=== PATIENT | female | born 1970 | race Caucasian/White ===

== ENCOUNTER → 2016-09-15 | Outpatient (CLI) | payer OTHER ==
[~2016-09-15] MED LIST: ALPRAZOLAM1 MG PO; ANTIVERT12.5 MG PO; BACTRIM DS 8001 TA1 PO; BENTYL20 MG PO; CHOLESTEROL PILL PO; GOLYTELY 40004000 ML PO; HORMONE REPLACEMENT; PRAVASTATIN 20M20 MG PO; PREMARIN 0.60.625 MG PO; SYNTHROID 0.00.05 MG PO; TORADOL10 MG PO; XANAX 0.25MG0.25 MG PO
[2016-09-15 17:57] LABS: BUN 10 mg/dL (7-18)
[2016-09-15 17:58] LABS: GFR (ESTIMATED) 68 ML/MIN (59-)
[2016-09-15 18:29] LABS: HEMOGLOBIN 14.8 g/dL (12.2-16.2); LYMPH # 2.1 K/mm3 (0.7-4.5); LYMPH % 30.3 % (10-50.0)
[2016-09-17 08:36] LABS: RA Latex Turbid. <10.0 IU/mL (0.0-13.9)
[2016-09-18 16:36] LABS: Antinuclear Antibodies, IFA Positive (.)
== END ==
LOC: LAB 17:16
PROVIDERS: Emergency Medicine
DX: H20.9 Unspecified iridocyclitis (principal); E03.9 Hypothyroidism, unspecified

== ENCOUNTER → 2017-05-14 | Outpatient (CLI) | payer OTHER ==
--- NOTE | 2017-05-15 05:28 | RADIOLOGY REPORT PS360 ---
DIG MAMM-SCREEN COLT W/CAD COMPARISON: 01/11 and 01/31/2013 INDICATION: Screening exam ORDERING PHYSICIAN: Maximo Reilly MD PATIENT AGE: 47 years TECHNIQUE: Routine images FINDINGS: Average fibroglandular tissue. No malignant appearing mass or malignant appearing microcalcification with no significant change. No architectural distortion or skin thickening. IMPRESSION: Negative mammogram, no change with no evidence of malignancy BI-RADS CATEGORY: 1_Negative RECOMMENDED FOLLOWUP: Annual screening mammogram (A letter has been sent to the patient regarding results of the study.)
== END ==
LOC: RAD 16:50
DX: Z12.31 Encounter for screening mammogram for malignant neoplasm of breast (principal)
CPT/HCPCS: G0202

== ENCOUNTER → 2017-06-09 | Outpatient (CLI) | payer OTHER ==
[2017-06-09 11:47] LABS: BUN 12 mg/dL (7-18)
[2017-06-09 12:32] LABS: GFR (ESTIMATED) 90 ML/MIN (59-)
[2017-06-09 14:44] LABS: HEMOGLOBIN 14.7 g/dL (12.2-16.2); LYMPH # 2.3 K/mm3 (0.7-4.5); LYMPH % 29.2 % (10-50.0)
[2017-06-11 10:40] LABS: Vitamin D, 25-Hydroxy 26.9 ng/mL (30.0-100.0)
[2017-06-15 06:39] LABS: MISCELLANEOUS TEST 15
== END ==
LOC: LAB 08:56
PROVIDERS: Emergency Medicine
DX: T73.2XXA Exhaustion due to exposure, initial encounter (principal); E03.9 Hypothyroidism, unspecified